=== PATIENT | female | born 2000 | race Caucasian/White ===

== ENCOUNTER 2024-08-23 10:28 | Emergency (ER) | payer OTHER ==
[~2024-08-23] VITALS: Ht 162.6 cm; Wt 113.4 kg
[2024-08-23] MEDS ORDERED: Percocet 5-3251 EACH PO (10:55)
[2024-08-23] MEDS ORDERED: AMOCLA875 PO (10:55)
== END 2024-08-23 10:56 | disposition home or self-care (01) ==
LOC: ER 10:28
DX: K04.7 Periapical abscess without sinus (principal); K02.9 Dental caries, unspecified
CPT/HCPCS: 99282